=== PATIENT | male | born 1945 | race Caucasian/White ===

== ENCOUNTER 2024-03-10 19:11 | Emergency (ER) | payer BC, MEDICARE ==
[2024-03-10] MEDS: Glucagon,Human Recombinant 1 MG Vial IVPUSH ONE (19:45)
[2024-03-10] MEDS: LORazepam 2 MG/ML SDV IVPUSH ONE (19:50)
== END 2024-03-10 21:15 | disposition home or self-care (01) ==
LOC: JD.ED 19:11
DX: T18.128A Food in esophagus causing other injury, initial encounter (principal)
CPT/HCPCS: 96374; 96375; 99283; J1611; J2060